=== PATIENT | female | born 1985 | race Two or more races ===

== ENCOUNTER 2024-08-30 01:29 | Emergency (ER) | payer OTHER ==
[~2024-08-30] VITALS: Ht 167.6 cm; Wt 90.9 kg
[2024-08-30] MEDS: PEG 3350/NA SULF,BICARB,CL/KCL 4000 ML SOLUTION PO ONE (03:20)
[2024-08-30] MEDS: MINERAL OIL 133 ML ENEMA PR ONE (04:28)
[2024-08-30 05:04] VITALS: BP 123/81; PULSE 84; RESP 16; TEMP 97.3; O2SAT 97
== END 2024-08-30 05:10 | disposition home or self-care (01) ==
LOC: EMS 01:31
DX: K59.03 Drug induced constipation (principal); T40.605A Adverse effect of unspecified narcotics, initial encounter; Y92.89 Other specified places as the place of occurrence of the external cause
CPT/HCPCS: 99284; Z7502; Z7610